=== PATIENT | male | born 1990 | race Two or more races ===

== ENCOUNTER 2021-02-07 10:47 | Emergency (ER) | payer MEDICAID, OTHER ==
[~2021-02-07] VITALS: Ht 182.9 cm; Wt 81.6 kg
[2021-02-07 11:52] VITALS: BP 110/80
[2021-02-07 13:44] LABS: Basophils # (auto) 0 10 ^3/uL (0-0.2); Basophils % (auto) 0.9 % (0.0-2.0); Eosinophils # (auto) 0.1 10 ^3/uL (0-0.8); Eosinophils % (auto) 2.3 % (0.0-7.0); Hematocrit 42.8 % (41.0-53.0); Hemoglobin 14.6 g/dL (13.5-17.5); Lymphocytes # (auto) 1.9 10 ^3/uL (0.4-5.4); Lymphocytes % (auto) 34.6 % (10.0-50.0); Mean Corpuscular Hemoglobin 31.7 pg (28.0-32.0); Mean Corpuscular Hgb Conc. 34.1 g/dL (32.0-36.0); Monocytes # (auto) 0.5 10 ^3/uL (0-1.3); Monocytes % (auto) 8.8 % (0.0-12.0); Neutrophils # (auto) 2.9 10 ^3/uL (1.6-8.6); Neutrophils % (auto) 53.4 % (37.0-80.0); Nucleated Red Blood Cells % 0.1 %; Platelet Count (auto) 260 10^3/uL (140-450); Red Blood Cells 4.61 10^6/uL (4.5-5.90); Red Cell Distribution Width 13.4 % (11.8-14.3); White Blood Cell 5.5 10^3/uL (4.4-10.8)
[2021-02-07 13:52] LABS: Urine Blood Negative /uL (Negative); Urine Specific Gravity 1.022 (1.001-1.035); Urine WBC <1 /hpf (0 - 3)
[2021-02-07 13:53] LABS: Urine Bacteria NONE SEEN /hpf (None Seen)
[2021-02-07 13:54] LABS: BUN/Creatinine Ratio 11.1; Calcium 8.8 mg/dL (8.5-10.1); Potassium 4.3 mmol/L (3.5-5.1)
[2021-02-07 14:07] LABS: Amphetamine Screen, Urine NEGATIVE (NEGATIVE); Barbiturate Scree,Urine NEGATIVE (NEGATIVE); Benzodiazephine Screen, Urine NEGATIVE (NEGATIVE); Cannabinoid Screen, Urine POSITIVE (NEGATIVE); Cocaine Screen, Urine NEGATIVE (NEGATIVE); Opiate Scree,Urine NEGATIVE (NEGATIVE)
[2021-02-07 14:14] LABS: Phencyclidine Screen, Urine NEGATIVE (NEGATIVE)
== END 2021-02-07 14:19 | disposition home or self-care (01) ==
LOC: ER 10:47
DX: R05 Cough (principal)
CPT/HCPCS: 36415; 71046; 80048; 80307; 81001; 84484; 85025

== ENCOUNTER 2021-04-24 13:12 | Emergency (ER) | payer MEDICAID ==
[~2021-04-24] VITALS: Ht 185.4 cm; Wt 82.6 kg
[2021-04-24 13:26] VITALS: BP 135/93
== END 2021-04-24 16:38 | disposition home or self-care (01) ==
LOC: ER 13:12 → EDBD 13:12 → ER 16:38
DX: S16.1XXA Strain of muscle, fascia and tendon at neck level, initial encounter (principal); S20.212A Contusion of left front wall of thorax, initial encounter; F17.210 Nicotine dependence, cigarettes, uncomplicated; F12.10 Cannabis abuse, uncomplicated; Z86.73 Personal history of transient ischemic attack (TIA), and cerebral infarction without residual deficits; V43.92XA Unspecified car occupant injured in collision with other type car in traffic accident, initial encounter; Y93.89 Activity, other specified; Y92.488 Other paved roadways as the place of occurrence of the external cause; Y99.8 Other external cause status
CPT/HCPCS: 70450; 71046; 72125

== ENCOUNTER 2022-04-25 19:31 | Emergency (ER) | payer MEDICAID ==
[~2022-04-25] VITALS: Ht 182.9 cm; Wt 90.7 kg
[2022-04-25 21:00] VITALS: BP 132/76
== END 2022-04-26 02:55 | disposition home or self-care (01) ==
LOC: EDBD 19:31 → ER 19:31
DX: T40.2X1A Poisoning by other opioids, accidental (unintentional), initial encounter (principal); I25.2 Old myocardial infarction; F17.210 Nicotine dependence, cigarettes, uncomplicated; Z86.73 Personal history of transient ischemic attack (TIA), and cerebral infarction without residual deficits; Z88.8 Allergy status to other drugs, medicaments and biological substances; Y92.89 Other specified places as the place of occurrence of the external cause